=== PATIENT | male | born 1970 | race Caucasian/White ===

== ENCOUNTER 2017-11-25 23:42 | Emergency (ER) | payer MEDICAID ==
[~2017-11-25] VITALS: Ht 185.4 cm; Wt 88.5 kg
[2017-11-25 23:51] VITALS: BP 151/92
[2017-11-26] MEDS ORDERED: cefTRIAXone 1GM/10ml IVPUSH 10 ML IV ONE
[2017-11-26] MEDS ORDERED: TETANUS-DIPTH-ACEL PERTUSSIS 0.5ML SYRG IM ONE
[2017-11-26] MEDS ORDERED: HYDROmorphone HCL 2 MG/ML VL IV ONE ×3 (01:00→02:45)
[2017-11-26] MEDS ORDERED: ETOMIDATE (2MG/ML) 20ML VIAL IV ONE (02:39)
[2017-11-26] MEDS ORDERED: ONDANSETRON HCL 4 MG/2 ML VIAL IV ONE ×2 (02:45)
[2017-11-26] MEDS ORDERED: BACITRACIN-POLYMYXIN B TOPICAL OINT UD TOP ONE (03:17)
[2017-11-26] MEDS ORDERED: BACITRACIN TOP OINT 1 UD PKG TOP ONE (03:45)
== END 2017-11-26 04:31 | disposition home or self-care (01) ==
LOC: ER 23:42
DX: S61.241A Puncture wound with foreign body of left index finger without damage to nail, initial encounter (principal); W22.8XXA Striking against or struck by other objects, initial encounter; Y93.89 Activity, other specified; Y92.89 Other specified places as the place of occurrence of the external cause; Y99.8 Other external cause status
CPT/HCPCS: 10120; 73120; 73130; 90471; 90715; 96374; 96375; 96376; 99152; 99285; J1170; J2405; J7030